=== PATIENT | female | born 1945 | race Caucasian/White ===

== ENCOUNTER 2020-07-25 06:51 | Outpatient (NON) | payer MEDICARE, SELFPAY ==
[2020-07-25 18:18] LABS: SARS-CoV-2 RNA PCR Positive
== END 2020-07-25 06:52 ==
PROVIDERS: PCP Family Medicine; Visit Provider Physician Assistant Medical
DX: U07.1 COVID-19 (principal)
CPT/HCPCS: 87635; C9803; U0003

== ENCOUNTER 2021-03-15 08:40 | Outpatient (CLI) | payer MEDICARE, SELFPAY ==
--- NOTE | ~2021-03-15 | MM_ITS ---
EXAMINATION: MM screening [facility] BI w jeramie HISTORY: Screening mammogram TECHNIQUE: Craniocaudal and mediolateral oblique 3-D tomosynthesis images were obtained and synthetic 2-D images were generated. CAD analysis was submitted and interpreted. COMPARISON: Prior mammograms dating back to 05/17/2014 BREAST PARENCHYMAL COMPOSITION: The breasts are almost entirely fatty. FINDINGS: There is no evidence of suspicious mass, calcification, or architectural distortion to sugg est malignancy in either breast. There has been no suspicious interval change. IMPRESSION: 1. No mammographic evidence of malignancy. 2. Recommend routine screening mammography in one year. BI-RADS Category 1: Negative Reviewed, dictated and finalized at location A.
== END 2021-03-15 08:41 | disposition home or self-care (01) ==
LOC: ANHIMG 08:45
PROVIDERS: PCP Family Medicine; Visit Provider Family Medicine
DX: Z12.31 Encounter for screening mammogram for malignant neoplasm of breast (principal)
CPT/HCPCS: 77063; 77067

== ENCOUNTER → 2021-04-29 10:55 | Outpatient (CLI) | payer MEDICARE, SELFPAY ==
--- NOTE | ~2021-04-29 | XR_ITS ---
EXAMINATION: XR knee RT 3V DATE: 04/29/2021 12:10 INDICATION: Right knee pain. TECHNIQUE: 3 views of right knee including standing views were obtained. COMPARISON: None. FINDINGS: Bone alignment is normal. No fracture. There is mild tricompartmental osteoarthritis charac terized by marginal osteophytes. No knee joint effusion. IMPRESSION: 1. Mild right knee osteoarthritis. Reviewed, dictated and finalized at location A.
== END ==
PROVIDERS: PCP Family Medicine; Visit Provider Family Medicine
DX: M25.561 Pain in right knee (principal); M17.11 Unilateral primary osteoarthritis, right knee
CPT/HCPCS: 73562

== ENCOUNTER → 2021-05-16 10:01 | Outpatient (CLI) | payer MEDICARE, SELFPAY ==
--- NOTE | ~2021-05-16 | MR_ITS ---
EXAMINATION: MR knee RT wo con DATE: 05/16/2021 11:18 INDICATION: Right knee swelling and pain radiating down the leg TECHNIQUE: Magnetic resonance imaging (MRI) of the right knee was performed without intravenous contr ast. Sequences included coronal PD-weighted FSE, coronal PD-weighted FS FSE, sagittal T2-weighted FS E, sagittal PD-weighted FS FSE and axial PD weighted fat saturated FSE. COMPARISON: None. FINDINGS: Medial compartment: Medial meniscus is normal. Articular cartilage is normal. Lateral compartment: Complex lateral meniscal tear with both radial and longitudinal horizontal components at the meniscal body. Partial-thickness chondral fissuring without degenerative subchondral changes at the lateral t ibial plateau and anterior to central weightbearing medial femoral condyle. There is small region of chondral ulceration involving greater than 50% the cartilage thickness with minimal underlying subart icular edema at the lateral side of the posterior weightbearing lateral femoral condyle. Patellofemoral compartment: Deep chondral ulceration with minimal underlying cortical irregularity and mild subarticular edema al sylvia the cephalad third of the lateral patellar facet and apical ridge as well as along the caudal asp ect of the lateral trochlea, trochlear groove and medial trochlea. Small central subchondral osteophy te at the inferolateral aspect of the medial trochlea. Ligaments and tendons: Anterior and posterior cruciate ligaments are normal. The medial collateral ligament is normal. The f ibular collateral ligament is normal. Mild tendinopathy with thickening and mild increased signal but without discrete tear of the proximal tendon of the medial head of the gastrocnemius. Mild distal qu adriceps tendinopathy. The patellar tendon is normal. The visualized medial and lateral hamstring ten dons as well as the iliotibial band are normal. Fluid: Moderate-sized knee joint effusion. No loose osteochondral bodies identified. Osseous/other: Alignment is normal. No fracture or pathologic marrow replacing process. IMPRESSION: 1. Complex tear at the body of the lateral meniscus. 2. Mild to moderate patellofemoral osteoarthritis with regions of high-grade patellar and trochlear c hondromalacia. 3. Mild osteoarthritis with moderate grade chondromalacia in the lateral compartment. 4. Mild tendinopathy without discrete tear at the distal quadriceps tendon as well as the proximal te ndon of the medial head of the gastrocnemius. 5. Moderate-sized right knee joint effusion. Reviewed, dictated and finalized at location A. IMPRESSION: 1. Complex tear at the body of the lateral meniscus. 2. Mild to moderate patellofemoral osteoarthritis with regions of high-grade pa tellar and trochlear chondromalacia. 3. Mild osteoarthritis with moderate grade chondromalacia in the lateral compar tment. 4. Mild tendinopathy without discrete tear at the distal quadriceps tendon as w ell as the proximal tendon of the medial head of the gastrocnemius. 5. Moderate-sized right knee joint effusion.
== END ==
PROVIDERS: PCP Family Medicine; Visit Provider Family Medicine
DX: M25.561 Pain in right knee (principal); S83.271A Complex tear of lateral meniscus, current injury, right knee, initial encounter; M17.11 Unilateral primary osteoarthritis, right knee; M22.41 Chondromalacia patellae, right knee; M76.891 Other specified enthesopathies of right lower limb, excluding foot; M25.461 Effusion, right knee
CPT/HCPCS: 73721

== ENCOUNTER → 2021-07-23 01:34 | Outpatient (CLI) | payer MEDICARE, SELFPAY ==
[2021-07-23 18:23] LABS: SARS-CoV-2 RNA PCR Negative
== END ==
PROVIDERS: PCP Family Medicine; Visit Provider Orthopaedic Surgery
DX: Z01.812 Encounter for preprocedural laboratory examination (principal); Z20.822 Contact with and (suspected) exposure to COVID-19
CPT/HCPCS: C9803; U0003; U0005

== ENCOUNTER 2021-07-23 08:38 | Outpatient (CLI) | payer MEDICARE, SELFPAY ==
--- NOTE | 2021-07-23 08:48 | ECG_ITS ---
Measurements Intervals [place] Rate: 61 P: 31 ID: [id number] QRS: -12 QRSD: 98 T: -2 QT: 426 QTc: 429 Interpretive Statements SINUS RHYTHM VENTRICULAR PREMATURE COMPLEX VOLTAGE CRITERIA FOR LVH BORDERLINE ST-T WAVE ABNORMALITY- ANTEROLAT/INF LEADS BASELINE ARTIFACT- I, II, III, AVR, AVL, AVF BORDERLINE ECG Electronically Signed On 07-23-2021 15:32:40 CDT by Nawaf Diaz D.O.
[2021-07-23 09:38] LABS: Anion Gap 7 mmol/L (8-16); Blood Urea Nitrogen 16 mg/dL (7-17); Calcium 9.4 mg/dL (8.4-10.2); Carbon Dioxide 30 mmol/L (22-30); Chloride 102 mmol/L (98-107); Estimated Glomerular Filt Rate > 60; Glucose 129 mg/dL (65-110); Potassium 4.1 mmol/L (3.4-5.0); Sodium 139 mmol/L (137-145)
== END 2021-07-23 08:39 | disposition home or self-care (01) ==
LOC: ANHSURGERY 08:43
PROVIDERS: Anesthesiology; PCP Family Medicine; Visit Provider Orthopaedic Surgery
DX: Z01.818 Encounter for other preprocedural examination (principal); I10 Essential (primary) hypertension; Z51.81 Encounter for therapeutic drug level monitoring; Z79.899 Other long term (current) drug therapy
CPT/HCPCS: 36415; 80048; 93005

== ENCOUNTER 2021-07-26 01:55 | Day surgery (SDC) | payer MEDICARE, SELFPAY ==
[2021-07-22 11:41] VITALS: BMI 38.8
[2021-07-26] VITALS (10 sets, daily range): BP systolic 97–151; BP diastolic 54–99; PULSE 55–78; RESP 12–20; TEMP 36.4–36.5; O2SAT 95–99
--- NOTE | 2021-07-26 07:16 | WPDHPUPDATE1 ---
History and Physical Update Update Date/Time: 07/26/21 07:16 History and Physical has been reviewed, including an updated exam of the patient. There are NO changes in the patient's condition. Risks, benefits, and alternatives have been discussed and questions answered. Patient agrees to proceed with procedure.
--- NOTE | 2021-07-26 11:50 | WPDANESEPPF ---
Anes - Initial Pre Proc Eval Procedure: Operation Date: 07/26/21 14:00 Proposed Procedures p Right Knee Arthroscopic Partial Lateral Meniscectomy - Uriel Davis MD Date/Time: 07/26/21 11:50 Surgeon: Uriel Davis MD Pre Op Diagnosis: right lateral meniscus tear Patient Data Age: 76 Gender: F Height: 1.7 m Weight: 112.49 kg Allergies Allergy/AdvReac Type Severity Reaction Status Date / Time doxycycline Allergy Intermediate Nausea Verified 07/26/21 11:50 hydrochlorothiazide Allergy Intermediate itching Verified 07/26/21 11:50 [Zestoretic] kiwi Allergy Intermediate Itching Verified 07/26/21 11:50 lisinopril Allergy Intermediate itching Verified 07/26/21 11:50 olmesartan Allergy Intermediate leg Verified 07/26/21 11:50 swelling, bloating? Antifungal - Imidazole Allergy Mild Skin Verified 07/26/21 11:50 Reaction cyanocobalamin (vitamin B12) Allergy Mild Skin Verified 07/26/21 11:50 Reaction docosahexaenoic acid [MaxEPA] Allergy Mild Skin Verified 07/26/21 11:50 Reaction eicosapentaenoic acid Allergy Mild Skin Verified 07/26/21 11:50 [MaxEPA] Reaction fish oil Allergy Mild Skin Verified 07/26/21 11:50 Reaction meloxicam Allergy Mild severe Verified 07/26/21 11:50 dyspepsia omega-3 acid ethyl esters Allergy Mild Itching Verified 07/26/21 11:50 omeprazole Allergy Mild Itching Verified 07/26/21 11:50 terbinafine Allergy Mild Itching Verified 07/26/21 11:50 duloxetine Allergy Unknown Unknown Verified 07/22/21 11:37 metronidazole Allergy Unknown Unknown Verified 07/22/21 11:37 omega-3 fatty acids [MaxEPA] Allergy Unknown Itching Verified 07/26/21 11:50 clarithromycin AdvReac Mild Nausea and Verified 07/26/21 11:50 Vomiting piroxicam AdvReac Mild Nausea and Verified 07/26/21 11:50 Vomiting Home Medications Medication Instructions Recorded Confirmed Type cholecalciferol (vitamin D3) 25 1,000 unit PO DAILY 08/05/19 07/22/21 History mcg (1,000 unit) capsule fluticasone propionate 50 1 spray NASAL DAILY PRN 08/05/19 07/22/21 History mcg/actuation nasal spray,suspension esomeprazole magnesium 40 mg 40 mg PO DAILY #90 cap 11/09/20 07/22/21 Rx capsule,delayed release celecoxib 200 mg capsule 400 mg PO DAILY #180 cap 11/30/20 07/22/21 Rx duloxetine 60 mg capsule,delayed 120 mg PO DAILY #180 cap 11/30/20 07/22/21 Rx release triamcinolone acetonide 0.1 % 1 applic TOPICAL QID #453.6 gm 03/07/21 07/22/21 Rx topical cream diclofenac epolamine 1.3 % 1 patch TOPICAL Q12H #30 ea 04/25/21 07/22/21 Rx transdermal 12 hour patch diclofenac sodium 1 % topical gel 4 g TOPICAL QID #100 g 04/25/21 07/22/21 Rx hydralazine 25 mg tablet 25 mg PO TID #270 tablet 06/05/21 07/22/21 Rx hydrochlorothiazide 12.5 mg tablet 12.5 mg PO DAILY #90 tablet 07/01/21 07/22/21 Rx alprazolam 0.5 mg PO Q4H PRN 07/22/21 07/22/21 History clonazepam 0.5 mg PO HS 07/22/21 07/22/21 History fluticasone propion-salmeterol 1 inh INHALATION BID PRN 07/22/21 07/22/21 History [Advair Diskus] levothyroxine [Synthroid] 125 mcg PO DAILY 07/22/21 07/22/21 History nebivolol [Bystolic] 10 mg PO HS 07/22/21 07/22/21 History Patient hx anesthesia problems: none Family hx anesthesia problems: none Results Review: All pre-operative results and documents have been reviewed as part of the pre-operative evaluation. [facility] Past Medical History Medical History (Updated 07/25/21 @ 14:27 by Angel Alexander DO) Anxiety Asthma Bunion Depression Diverticulosis of small intestine (~2008) Fatty liver Gastroesophageal reflux disease Hyperhidrosis Hypertension Ischemic brain injury (~2008) Obesity (BMI 30-39.9) Pneumonia (~2018) Prurigo nodularis Sleep apnea, unspecified Squamous cell skin cancer Staphylococcal septicemia (~2013) Surgical History Surgical History H/O hernia repair H/O: hysterectomy (~1993) History of bilate
[2021-07-26] MEDS: ACETAMINOPHEN 500 MG TABLET 1000 MG PO (11:59)
[2021-07-26] MEDS: LACTATED RINGERS 1,000 ML 30 ML IV CONT ×2 (12:15→14:03)
[2021-07-26] MEDS: KETOROLAC 15 MG/ML VIAL (*BKC) IV PUSH (12:16)
[2021-07-26] MEDS: ceFAZolin 2 GM/D5W 50 ML 2 GM/50 ML BAG IVPB (12:34)
[2021-07-26] MEDS: BUPIVACAINE HCL 0.5% PF 30 ML VIAL INFILTRATE (13:04)
[2021-07-26] MEDS: fentaNYL CITRATE INJ (*CRX) 100 MCG/2 ML VIAL 25 MCG IV PUSH ×2 (14:25→14:34)
[2021-07-26] MEDS: oxyCODONE HCL (*CRX) 5 MG TAB IR PO (15:15)
--- NOTE | 2021-07-26 16:31 | P.OP_ITS ---
Procedure Note - Detailed Date of Procedure 07/26/21 Pre-op Diagnosis Right lateral meniscus tear Post-op Diagnosis same Procedure Performed Arthroscopic partial lateral meniscectomy, right knee. Surgeon Uriel Davis MD [facility] Adolescent Psychiatrist Sharon Francis PA-C Anesthesia general Findings Extensive lateral meniscus tear with large, unstable, extruded fragment. Severe proliferative synovitis. Medial femur chondromalacia grade 0, medial tibia grade 0 . Lateral femur chondromalacia grade 2/3, lateral tibia grade 1. Patellar grade 1, trochlea grade 1. Description of Procedure The patient was identified and the surgical site confirmed and signed in the preoperative holding area. Antibiotics were started per protocol. She was brought to the operative room and transferred to the OR table. A general anesthetic was administered. Supine position with the operative lower extremity position in the leg nelson after placement of a well padded tourniquet. The leg support was lowered and the contralateral limb was supported with a soft bolster . The knee was prepped and draped in the usual sterile fashion. A time-out was performed. The portal sites were marked and infiltrated with 0.5% Marcaine 20 mL. The limb was exsanguinated and the tourniquet inflated to 300 mL Hg. Standard inferolateral and inferomedial portals were established. Inflow was obtained with the saline pump. The camera was introduced. Diagnostic inspection of the joint was accomplished. The meniscus was debrided with the arthroscopic shaver and punches until stable. Gentle chondroplasty of the lateral femoral condyle. The arthroscopic instruments were removed. The tourniquet released and wounds closed with subcutaneous 4-0 Monocryl absorbable suture. Steri strips and a sterile dressing were applied. A light elastic wrap was placed. The patient was extubated and brought to the recovery room in stable condition. Estimated Blood Loss -5.0 Drains No Complications No immediate complications Condition stable Disposition PACU
== END 2021-07-26 16:00 | disposition home or self-care (01) ==
PROVIDERS: PCP Family Medicine; Visit Provider Orthopaedic Surgery
PROC: (CPT 29870; principal; 2021-07-26 14:00)
DX: S83.271A Complex tear of lateral meniscus, current injury, right knee, initial encounter (principal); M65.9 Synovitis and tenosynovitis, unspecified; M22.41 Chondromalacia patellae, right knee; I10 Essential (primary) hypertension; K21.9 Gastro-esophageal reflux disease without esophagitis; J45.909 Unspecified asthma, uncomplicated; G47.33 Obstructive sleep apnea (adult) (pediatric); E66.9 Obesity, unspecified; Z68.39 Body mass index [BMI] 39.0-39.9, adult; Z85.828 Personal history of other malignant neoplasm of skin; X58.XXXA Exposure to other specified factors, initial encounter; Y93.9 Activity, unspecified; Y92.9 Unspecified place or not applicable; Y99.9 Unspecified external cause status
CPT/HCPCS: 29881; 36415; 80048; 93005; A9270; C9803; J0690; J1885; J3010; J7120; U0003; U0005

== ENCOUNTER 2022-10-24 09:03 | Outpatient (CLI) | payer MEDICARE, SELFPAY ==
--- NOTE | ~2022-10-24 | CT_ITS ---
EXAMINATION: CT LE RT wo con DATE: 10/24/2022 09:42 INDICATION: Right knee osteoarthritis an pain for preoperative planning TECHNIQUE: High resolution computed tomography (CT) of the right lower extremity from the hip through the ankle was performed without intravenous contrast. Additional sagittal and coronal reconstruction s were performed. Automated exposure control and iterative reconstruction technique were employed. Th e dose-length product was 1984.14 mGy-cm. COMPARISON: Right knee radiographs dated 09/08/2022 and MRI dated 05/16/2021 FINDINGS: Bone alignment is normal. No fracture. Polyarticular osteoarthritis, moderate severity at the right k nee with patellofemoral and lateral compartment predominance where there are mild subarticular change s suggesting overlying high-grade chondromalacia. Additional moderate osteoarthritis at the first met atarsophalangeal joint and mild osteoarthritis at the right hip and a few additional joints throughou t the right foot. Small Achilles and plantar calcaneal spurs. Moderate-sized right knee joint effusio n. 4 x 1.8 x 1.7 cm lenticular intramuscular lipoma in the proximal right vastus intermedius muscle. Soft tissues are otherwise unremarkable. No pathologically enlarged lymphadenopathy in the excised pe lvis right inguinal region. Multiple diverticula along the visualized sigmoid colon without adjacent inflammatory stranding to suggest diverticulitis. The uterus is not identified and has likely been soto rgically resected. IMPRESSION: 1. Moderate lateral and patellofemoral compartment predominant compartment osteoarthritis at the righ t knee with moderate-sized knee joint effusion. Reviewed, dictated and finalized at location B. NT SERVICES COORDINATOR IMPRESSION: 1. Moderate lateral and patellofemoral compartment predominant compartment oste oarthritis at the right knee with moderate-sized knee joint effusion.
[2022-10-24 10:29] LABS: Hematocrit 44.9 % (37.0-47.0); Hemoglobin 14.3 g/dL (12.0-15.0)
[2022-10-24 10:38] LABS: Albumin Level 4.1 g/dL (3.5-5.1); Estimated Glomerular Filt Rate > 60; Glucose 114 mg/dL (65-110)
[2022-10-24 10:42] LABS: Hemoglobin A1C 5.8 % (<5.7)
== END 2022-10-24 09:04 | disposition home or self-care (01) ==
PROVIDERS: PCP Family Medicine; Visit Provider Orthopaedic Surgery
DX: M17.11 Unilateral primary osteoarthritis, right knee (principal); R73.03 Prediabetes; Z01.818 Encounter for other preprocedural examination; M25.461 Effusion, right knee
CPT/HCPCS: 36415; 73700; 82040; 82565; 82947; 83036; 85014; 85018

== ENCOUNTER 2022-10-29 09:43 | Outpatient (CLI) | payer MEDICARE, SELFPAY ==
--- NOTE | 2022-10-29 11:44 | ECG_ITS ---
Measurements Intervals [place] Rate: 63 P: 38 AK: 195 QRS: -8 QRSD: 82 T: -2 QT: 427 QTc: 437 Interpretive Statements SINUS RHYTHM WITH OCCASIONAL VENTRICULAR PREMATURE COMPLEXES MINIMAL VOLTAGE CRITERIA FOR LVH, CONSIDER NORMAL VARIANT [MEETS CRITERIA IN ONE OF: R(aVL), S(V1), R(V5), R(V5/V6)+S(V1)] NONSPECIFIC ST & T-WAVE ABNORMALITY COMPARED TO ECG 07/23/2021 09:00:43 NO SIGNIFICANT CHANGES Electronically Signed On 10-29-2022 14:58:52 ORDER CALLER by Joan Zimmer M.D.
== END 2022-10-29 09:44 | disposition home or self-care (01) ==
LOC: ANHCARD 09:47
PROVIDERS: PCP Family Medicine; Visit Provider Orthopaedic Surgery
DX: I10 Essential (primary) hypertension (principal); M17.11 Unilateral primary osteoarthritis, right knee; I25.118 Atherosclerotic heart disease of native coronary artery with other forms of angina pectoris; R94.31 Abnormal electrocardiogram [ECG] [EKG]
CPT/HCPCS: 93005

== ENCOUNTER 2023-07-28 09:44 | Outpatient (CLI) | payer MEDICARE, SELFPAY ==
--- NOTE | ~2023-07-28 | MM_ITS ---
EXAMINATION: MM screening [facility] BI w jeramie HISTORY: Screening mammogram TECHNIQUE: Craniocaudal and mediolateral oblique 3-D tomosynthesis images were obtained and synthetic 2-D images were generated. CAD analysis was submitted and interpreted. COMPARISON: 03/15/2021, 10/10/2019, 07/19/2018 BREAST PARENCHYMAL COMPOSITION: There are scattered areas of fibroglandular density. FINDINGS: No suspicious mass, calcification, or architectural distortion are identified in either brigida ast to suggest malignancy. There has been no suspicious interval change. IMPRESSION: 1. No mammographic evidence of malignancy. 2. Recommend routine screening mammography in one year. BI-RADS Category 1: Negative Reviewed, dictated and finalized at location A.
== END 2023-07-28 09:45 | disposition home or self-care (01) ==
LOC: ANHIMG 09:46
PROVIDERS: PCP Family Medicine; Visit Provider Physician Assistant
DX: Z12.31 Encounter for screening mammogram for malignant neoplasm of breast (principal)
CPT/HCPCS: 77063; 77067

== ENCOUNTER 2024-07-11 14:27 | Outpatient (CLI) | payer MEDICARE, SELFPAY ==
--- NOTE | ~2024-07-11 | US_ITS ---
EXAMINATION: US venous doppler [facility] DATE: 07/11/2024 15:15 INDICATION: Other specified soft tissue disorders. Left lower limb pain and swelling. TECHNIQUE: Grayscale ultrasound images without and with compression and Doppler ultrasound images of the left lower extremity veins were obtained. COMPARISON: None. FINDINGS: The visualized portions of left common femoral vein, profunda (deep) femoral vein, and greater saphen ous vein outflow are patent. There is thrombus in the left femoral, popliteal, posterior tibial, and peroneal veins. IMPRESSION: 1. Deep vein thrombosis involving the left femoral, popliteal, posterior tibial, and peroneal veins. Reviewed, dictated and finalized at location A. IMPRESSION: 1. Deep vein thrombosis involving the left femoral, popliteal, posterior tibia l, and peroneal veins.
== END 2024-07-11 14:28 | disposition home or self-care (01) ==
PROVIDERS: PCP Family Medicine; Visit Provider Student in an Organized Health Care Education/Training Program
DX: I82.412 Acute embolism and thrombosis of left femoral vein (principal); I82.432 Acute embolism and thrombosis of left popliteal vein; I82.442 Acute embolism and thrombosis of left tibial vein; I82.452 Acute embolism and thrombosis of left peroneal vein; M79.89 Other specified soft tissue disorders
CPT/HCPCS: 93971

== ENCOUNTER 2024-12-07 10:37 | Outpatient (CLI) | payer MEDICARE, SELFPAY ==
--- OUTSIDE RECORDS SUMMARY | 2024-12-07 12:05 | XMS_ITS | Continuity of Care Document ---
Author Organization [facility] Address [id number] [place] [address] [address] [place] [address] Phone Care Team Providers Care Broadloom Weaver Name Role Phone [facility] Unavailable Unavail able Landy Alonzo Unavailable Unavailable Procedures Procedure Date Vision S[employer] Fr[employer] Purchases [facility] [employer] [employer] Purchases BF Polycarb Sphcyl [place] To +/-4d .12-2d Anti-reflective Coating Polycarb Lens Per Lens No Charge Glasses Check Eye Exam Established Pt Ophthalmoscopy, Subsequent Eye Exam Established Pt Ophthalmoscopy, Subsequent Eye Exam Established Pt Ophthalmoscopy, Subsequent Eye Exam & Treatment Ophthalmoscopy, Subsequent Optic Nerve Topography Eye Exam & Treatment Refraction Office/outpatient Visit, Est Office/outpatient Visit, Est Office/outpatient Visit, Est Office/outpatient Visit, Est Office/outpatient Visit, Est Office/outpatient Visit, New Office/outpatient Visit, New Advance Directives Directive Yes / No Effective Date File Name No Information Encounters Encounter Description Practice Location Reason(s) For Visit Diagnoses Date Provider Providers Copied on Encounter [facility], [address], [place], [place], [id number], tel:[phone] [facility] No Information 5-201 0 [facility]. [address] [facility], [address], [place], [place], [id number], [place]. tel:[phone] Referring Provider: Max Burrell OD Nida, [address], [place], [address]. tel:[phone] g Provider: Landy Alonzo, [address] [place], [address]. tel:[phone] [facility], [address], [place], [place], [id number], [place] tel:[phone] [facility] No Information 1-201 0 Burrell OD Max. [address], [place], [address], [place]. tel:[phone] [facility], [address] [place] [address] [address], [place], [place], [id number], [place] tel:[phone] [facility] No Information 8-201 0 Satish Martinez. [address] [place], [address], [place]. tel:[phone] Referring Provider: Juan Bay, [address] [place], [address]. tel:[phone] [facility], [address], [place], [place], [id number], [place] tel:[phone] [facility] No Information 1-201 0 Satish Martinez. [address] [place], [address], [place]. tel:[phone] Referring Provider: Juan Bay, [address] [place], [address]. tel:[phone] [facility], [address], [place], [place], [id number], [place] tel:[phone] [place], [place] [address] No Information Sep-3 0-201 0 Satish Martinez. [address] [place], [address], [place]. tel:[phone] Referring Provider: Juan Bay, [address] [place], [address]. tel:[phone] [facility], [address] [place] [address] [address], [place], [place], [id number], [place] tel:[phone] [place], [place] [address] No Information 2 3-201 0 Satish Martinez. [address] [place], [place], [facility], [place]. tel:[phone] Referring Provider: Juan Bay, [address] [place], [facility]. tel:[phone] [facility], [address] [place] [address] [address], [place], [place], [id number], [place] tel:[phone] [place] [address] No Information 0 7-201 0 C[place]ton Meaghan. [facility], [place], [place], [facility], [place]. tel:[phone] Office/outpa tient Visit, [facility], [id number] [place] [address] [address], [place], [place], [id number], [place] tel:[phone] [place] [address] No Information 7-201 0 Krishnasamy Lázaro. [facility], [place], [facility], [place]. tel:[phone] Office/outpa tient Visit, [facility], [address] [place] [address] [address], [place], [place], [id number], [place] tel:[phone] [place], [place] [address]ate [place] No Information 2 5-200 9 Krishnasamy Lázaro. [address], [place], [place], [facility], [place]. tel:[phone] Office/outpa tient Visit, [facility], [address], [place], [place], [address], [place] tel:[phone] [facility] No Information Nov-0 4-200 9 Krishnasamy Lázaro. [address], [place], [address], [place]. tel:[phone] Office/outpa tient Visit, [facility], [address] [place] [address] [address], [place], [place], [address], [place] tel:[phone] [facility] No Information Oct-2 7-200 9 Krishnasamy Lázaro. [address] [facility] [address], [place], [place], [facility], [place]. tel:[phone] Office/outpa tient Visit, [facility], [address] [place] [address] [address], [place], [place], [id number], [place] tel:[phone] [facility] No Information Oct-2 1-200 9 Krishnasamy Lázaro. [address] [facility] [address], [place], [address], [place]. tel:[phone] Office/outpa tient Visit, [facility], [address] [place] [address] [address], [place], [place], [id number], [place] tel:[phone] [facility] No Information Oct-1 4-200 9 Krishnasamy Lázaro. [address], [place], [address], [place]. tel:[phone] Office/outpa tient Visit, [facility], [address], [place], [place], [id number], [place] tel:[phone] [facility] No Information Mar-0 5-200 9 Krishnasamy Lázaro. [address], [place], [address], . tel:[phone] Referring Provider: Pierce Cobb MD, [address] [place] [address], [address]. tel:[phone] Family History Family Member Type Diagnosis Age At Onset No Information Payers Payer name Insurance type Covered alliance party ID Authoriza tisrikanth(s) [employer] Plan CI [id number] Social History Type Description Quantity Date Captured Comments Sex Female Smoking Status No Information Chief Complaint And Reason For Visit No Information Reason For Referral Reason For Referral No Information History Of Present Illness Encounter Date Complaint History Of Prese nt Illness No Information Functional Status Date Functional Assessmen t No Information Instructions Date Instruction Additional Infor mation No Information Assessments Type Assessment Date No Information Patient Care Teams Name Effective Dates (start - stop) Status Members No Information
--- OUTSIDE RECORDS SUMMARY | 2024-12-07 12:05 | XMS_ITS | Clinical Summary ---
Author Organization [facility] Address [address] [place] [address] Care Team Providers Care Cementer Name Role Phone Pierce Cobb MD Primary Care Provider +1- [phone] Allergies No known active allergies Social History Tobacco Use Types Packs/Day Years Used Date Smoking Tobacco: Never Assessed Comments Unknown Sex and Gender Information Value Date Recorded Sex Assigned at Not on file Legal Sex Female 5:43 PM CDT Gender Identity Not on file Sexual Orientation Not on file Last Filed Vital Signs Vital Sign Reading Time Taken Comments Blood Pressure 176/73 05/13/2021 7:31 PM CDT Pulse 67 05/13/2021 5:51 PM CDT Temperature 36.5 C (97.7 F) 05/13/2021 5:51 PM CDT Respiratory Rate 18 05/13/2021 5:51 PM CDT Oxygen Saturation 95% 05/13/2021 7:32 PM CDT Inhaled Oxygen Concentration - - Weight 113.4 kg (250 lb) 05/13/2021 5:51 PM CDT Height 162.6 cm (5' 4 ) 05/13/2021 5:51 PM CDT Body Mass Index 42.91 05/13/2021 5:51 PM CDT Plan of Treatment Health Maintenance Due Date Last Done Comments Hepatitis C 1965 DTaP, Tdap and Td Vaccines ( 1 - Tdap) 1966 Annual Medicare Wellness Visit 2012 Dexa Scan (General) 2012 Pneumococcal Vaccine: 65+ Ye ars (1 of 1 - PCV) 2012 Zoster Vaccines (2 of 3) 04/30/2017 03/05/2017 RSV Immunization or 60+ Years (1 - 1-dose 75+ series) 2022 COVID-19 Vaccine (2023-2 5 season) 2024 Influenza Adult (#1) 2024 07/06/2019 Meningococcal B Vaccine Aged Out No l onger eligible based on patient's age to complete this topic Meningococcal Vaccine Aged Out No kenisha edi eligible based on patient's age to complete this topic RSV Immunizations Under 20 Months Aged Out No longer eligible based on patient's age to complete this topic Insurance [employer] Care Teams Cementer Relationship Specialty Start Date End Date Pierce Cobb MD PCP - General FAMILY PRACTICE 05/13/21
--- OUTSIDE RECORDS SUMMARY | 2024-12-07 12:05 | XMS_ITS | Clinical Summary ---
Author Organization [facility] [address] Address [address] [place] [address] Care Team Providers Care Dredge Deckhand Name Role Phone Pierce Cobb MD Primary Care Provider [phone] [phone] Allergies Active Allergy Reactions Criticality Noted Date Comments Piroxicam Other (See comments),Edema,Swelling Reaction: legs itching, edema, , Reaction: Swelling, Medications clonazePAM (KlonoPIN) 0.5 mg tablet take 1 tablet by oral route every day 0 0 6 Active hydrALAZINE (APRESOLINE) 25 mg tablet take 1 tablet by ORAL route 3 times every day with food 0 0 6 Active celecoxib (CeleBREX) 200 mg capsule take 1 capsule by oral route every day as needed 0 0 6 Active nitroglycerin (NITROLINGUAL) 400 mcg/spray spray place 1 spray by translingual route once onto or under the tongue for chest pain; max 3 sprays in 15 minutes 1 spray 3 6 Active hydroCHLOROthia zide (HYDRODIURIL) 12.5 mg tablet take 1 tablet by oral route every day 0 [address] (CYMBALTA) 60 mg capsule take 1 capsule by oral route every day 0 0 6 Active fluticasone-sánchez meterol (ADVAIR HFA) 115-21 mcg/actuation inhaler inhale 2 puff by inhalation route 2 times every day in the morning and evening 0 Inhaler 0 6 Active aspirin (ASPIRIN LOW DOSE) 81 mg tablet take 1 tablet by oral route every day 0 0 6 Active levothyroxine (SYNTHROID, LEVOTHROID) 125 mcg tablet take 2 tablet by oral route every day 0 0 6 Active nebivolol (BYSTOLIC) 10 mg tablet take 1 Tablet by oral route every day 0 0 6 Active Active Problems Problem Noted Date Diagnosed Date Hiatal hernia 10/21/2016 Overview (01/02/2017): Hiatal hernia Fatigue 10/21/2016 Overview (01/02/2017): Fatigue, unspecified type Caregiver role strain 10/21/2016 Overview (01/02/2017): Caregiver stress Asthma finding 10/21/2016 Overview (01/02/2017): Asthma finding Patient encounter status 10/21/2016 Overview (01/02/2017): Dietary counseling Counseling procedure with explicit context 10/21 Overview (01/02/2017): Exercise counseling Benign hypertension 07/25/2016 Overview (01/02/2017): HTN (hypertension), benign Obstructive sleep apnea syndrome 07/25/2016 Overview (01/02/2017): CADE on CPAP Acquired hypothyroidism 07/25/2016 Overview (01/02/2017): Hypothyroidism (acquired) Obesity with body mass index 30 or greater 07/25 Overview (01/02/2017): Obesity (BMI 35.0-39.9 without comorbidity) Dyskinesia of esophagus 07/25/2016 Overview (01/02/2017): Esophageal spasm Gastroesophageal reflux disease 07/25/2016 Overview (01/02/2017): Gastroesophageal reflux disease, esophagitis presence not specified Bradycardia 07/25/2016 Overview (01/02/2017): Bradycardia Never smoked tobacco 08/29/2011 Family History Medical History Relation Name Comments Other Father Blood clots, elisabeth ng; Heart disease Mother Cardiovascular disease; Relation Name Status Comments Father Mother Social History Tobacco Use Types Packs/Day Years Used Date Smoking Tobacco: Never Alcohol Use Standard Drinks/Week Comments No 0 (1 standard drink = 0.6 oz pur e alcohol) Personal Safety Answer Date Recorded Getting School Help Needed Not on file 12/11 Comments Unknown Sex and Gender Information Value Date Recorded Sex Assigned at Not on file Legal Sex Female 6:36 AM UNDERWRITING CLERK Gender Identity Not on file Sexual Orientation Not on file Obstetrics History Last Filed Vital Signs Vital Sign Reading Time Taken Comments Blood Pressure 140/90 10/21/2016 9:00 AM UNDERWRITING CLERK Pulse 60 10/21/2016 9:00 AM UNDERWRITING CLERK Temperature - - Respiratory Rate - - Oxygen Saturation - - Inhaled Oxygen Concentration - - Weight 115.7 kg (255 lb) 10/21/2016 9:00 AM UNDERWRITING CLERK Height 170.2 cm (5' 7 ) 10/21/2016 9:00 AM UNDERWRITING CLERK Body Mass Index 39.94 10/21/2016 9:00 AM UNDERWRITING CLERK Plan of Treatment Not on file Insurance [facility] Care Teams Dredge Deckhand Relationship Specialty Start Date End Date Pierce Cobb MD PCP - General 10/21/16
--- OUTSIDE RECORDS SUMMARY | 2024-12-07 12:05 | XMS_ITS | Referral Summary ---
Author Organization [facility] [address] Address [address] [place] [address] Care Team Providers Care Continuum Of Care Manager Name Role Phone Pierce Cobb MD Primary Care Provider +1 -[phone] Allergies Active Allergy Reactions Criticality Noted Date [...] Overview (01/02/2017): Bradycardia Never smoked tobacco 08/29/2011 Social History Tobacco Use Types Packs/Day Years Used Date Smoking Tobacco: Never Alcohol Use Standard Drinks/Week Comments No 0 (1 standard drink = 0.6 oz pur e alcohol) Personal Safety Answer Date Recorded Getting School Help Needed Not on file 12/11 Comments Unknown Sex and Gender Information Value Date Recorded Sex Assigned at Not on file Legal Sex Female 6:36 AM RICKSHAW DRIVER Gender Identity Not on file Sexual Orientation Not on file Last Filed Vital Signs Vital Sign Reading Time Taken Comments Blood Pressure 140/90 10/21/2016 9:00 AM RICKSHAW DRIVER Pulse 60 10/21/2016 9:00 AM RICKSHAW DRIVER Temperature - - Respiratory Rate - - Oxygen Saturation - - Inhaled Oxygen Concentration - - Weight 115.7 kg (255 lb) 10/21/2016 9:00 AM RICKSHAW DRIVER Height 170.2 cm (5' 7 ) 10/21/2016 9:00 AM RICKSHAW DRIVER Body Mass Index 39.94 10/21/2016 9:00 AM RICKSHAW DRIVER Plan of Treatment Not on file Insurance [facility] Care Teams Continuum Of Care Manager Relationship Specialty Start Date End Date Pierce Cobb MD PCP - General 10/21/16
[2024-12-07 13:23] LABS: Basophils Percent Auto 0.3 % (0.2-1.2); Eosinophils Absolute Auto 0.2 K/mm3 (0-0.3); Eosinophils Percent Auto 2.8 % (0-4.4); Hematocrit 48.6 % (37.0-47.0); Hemoglobin 15.8 g/dL (12.0-15.0); Immature Granulocyte Absolute 0.05 K/mm3 (0.00-0.031); Immature Granulocyte Percent A 0.6 % (0-0.5); Lymphocytes Absolute Auto 2.02 K/mm3 (0.9-3.2); Lymphocytes Percent Auto 23.2 % (18.3-44.2); Mean Corpuscular HGB Conc 32.5 g/dl (32-36); Mean Corpuscular Hemoglobin 33.3 pg (26-34); Mean Corpuscular Volume 102.5 fl (80-100); Mean Platelet Volume 9.5 fl (7.4-10.4); Monocytes Percent Auto 11.3 % (2.6-8.5); Neutrophils Absolute Auto 5.4 K/mm3 (1.3-6.7); Neutrophils Percent Auto 61.8 % (45.5-73.1); Platelet Count Result 201 k/mm3 (150-375); Red Blood Count 4.74 M/mm3 (4.2-5.4); Red Cell Distribution Width 12.4 % (11.5-14.5); White Blood Count 8.7 K/mm3 (4.5-10.0)
[2024-12-07 15:29] LABS: Iron 133 ug/dL (37-170)
[2024-12-07 15:39] LABS: Percent Iron Saturation 42 % (20-50)
== END 2024-12-07 10:38 | disposition home or self-care (01) ==
PROVIDERS: PCP Family Medicine; Visit Provider Family Medicine
DX: D75.1 Secondary polycythemia (principal); E83.19 Other disorders of iron metabolism; I82.409 Acute embolism and thrombosis of unspecified deep veins of unspecified lower extremity
CPT/HCPCS: 36415; 83540; 83550; 85025

== ENCOUNTER 2025-03-28 14:06 | Outpatient (CLI) | payer MEDICARE, SELFPAY ==
--- OUTSIDE RECORDS SUMMARY | 2025-03-28 14:09 | XMS_ITS | Clinical Summary ---
Author Organization [facility] Trevor cleary Emeka Address [address] [place] [address] Care Team Providers Care Digital Computer Systems Analyst Name Role Phone Unavailable Primary Care Provider Unavailabl e Allergies Active Allergy Reactions Criticality Noted Date Comments Piroxicam Unknown,Other (See Comments),Swelling Low 03/28/2025 Reaction: legs itching, edema, , Reaction: Swelling, Medications hydroCHLOROthia zide 12.5 mg tablet Take 1 Tablet by mouth daily. 5 Active clonazePAM (KlonoPIN) 0.5 mg Tablet take 1 tablet by mouth every day at bedtime 5 Active nebivoloL (BYSTOLIC) 10 mg Tablet 5 Active DULoxetine (CYMBALTA) 60 mg Capsule, Delayed Release(E.C.) Take 2 Capsules by mouth daily. 5 Active levothyroxine 137 mcg tablet Take 1 Tablet by mouth daily. Active hydrALAZINE (APRESOLINE) 25 mg tablet Take 25 mg by mouth 3 times daily. Active PROGESTERONE MICRONIZED ORAL Take 220 mg by mouth. Active liothyronine sodium (LIOTHYRONINE ORAL) Take 40 mg by mouth. Active estradioL (ESTRACE) 0.01% (0.1 mg/g) vaginal cream Insert vaginally daily. Active Active Problems No known active problems Encounters Date Type Department Care Team Description 03/28/2025 1:30 PM CDT Office Visit [facility] Oncology and Hematology - [place] [address] [place] [address] Jaspreet Vega MD Erythrocytosis (Primary Dx); Iron overload from Last 3 Months Family History Medical History Relation Name Comments No Known Problems Brother No Known Problems Child 1 No Known Problems Child 2 No Known Problems Child 3 Diabetes Father Prostate Cancer Father Diabetes Mother Heart Disease Mother No Known Problems Sister Relation Name Status Comments Brother Child 1 Alive Child 2 Alive Child 3 Alive Father Mother Sister Alive Social History Tobacco Use Types Packs/Day Years Used Date Smoking Tobacco: Never Smokeless Tobacco: Never Tobacco Cessation:Counseling Given: Not Answered Alcohol Use Standard Drinks/Week Comments Yes 0 (1 standard drink = 0.6 oz pur e alcohol) occasional Comments Unknown Sex and Gender Information Value Date Recorded Sex Assigned at Not on file Legal Sex Female 10:34 PM CDT Gender Identity Not on file Sexual Orientation Not on file Last Filed Vital Signs Vital Sign Reading Time Taken Comments Blood Pressure 107/69 03/28/2025 1:27 PM CDT Pulse 66 03/28/2025 1:27 PM CDT Temperature 36.9 C (98.5 F) 03/28/2025 1:27 PM CDT Respiratory Rate 15 03/28/2025 1:27 PM CDT Oxygen Saturation 95% 03/28/2025 1:27 PM CDT Inhaled Oxygen Concentration - - Weight 96.2 kg (212 lb) 03/28/2025 1:27 PM CDT Height 170.2 cm (5' 7) 03/28/2025 1:27 PM CDT Body Mass Index 33.2 03/28/2025 1:27 PM CDT Plan of Treatment Upcoming Encounters Date Type Department Care Team (Late st Contact Info) Description 04/11/2025 4:30 PM CDT Telephone Check Up [facility] Oncology and Hematology - [place] [address] [facility] [address] [place] [address] Jaspreet Vega MD [address] [facility] [address] [place] [address] Health Maintenance Due Date Last Done Comments DTAP/TDAP/TD VACCINES (1 - Tdap) 1966 PNEUMOCOCCAL VACCINE 50+ YEARS (1 of 1 - PCV) 06/24/19 97 ZOSTER VACCINE (1 of 2) 1997 OSTEOPOROSIS SCREENING 2012 RSV VACCINE (60+ or ) (1 - 1-dose 75+ series) 2022 INFLUENZA VACCINE (#1) 2025 Insurance [employer] PPO [facility]
--- OUTSIDE RECORDS SUMMARY | 2025-03-28 14:10 | XMS_ITS | Referral Summary ---
Author Organization [facility] [address] Address [address] [place] [address] Care Team Providers Care Fry Cook Name Role Phone Pierce Cobb MD Primary Care Provider +1 [phone] Allergies Active Allergy Reactions Criticality Noted Date [...] on file Legal Sex Female 6:36 AM CHANGE CONTROL ANALYST Gender Identity Not on file Sexual Orientation Not on file Last Filed Vital Signs Vital Sign Reading Time Taken Comments Blood Pressure 140/90 10/21/2016 9:00 AM CHANGE CONTROL ANALYST Pulse 60 10/21/2016 9:00 AM CHANGE CONTROL ANALYST Temperature - - Respiratory Rate - - Oxygen Saturation - - Inhaled Oxygen Concentration - - Weight 115.7 kg (255 lb) 10/21/2016 9:00 AM CHANGE CONTROL ANALYST Height 170.2 cm (5' 7) 10/21/2016 9:00 AM CHANGE CONTROL ANALYST Body Mass Index 39.94 10/21/2016 9:00 AM CHANGE CONTROL ANALYST Plan of Treatment Not on file Insurance [facility] Care Teams Fry Cook Relationship Specialty Start Date End Date Pierce Cobb MD PCP - General 10/21/16
--- OUTSIDE RECORDS SUMMARY | 2025-03-28 14:10 | XMS_ITS | Clinical Summary ---
Author Organization [facility] Address [address] [place] [address] Care Team Providers Care Mileage Clerk Name Role Phone Pierce Cobb MD Primary Care Provider +1- [phone] Allergies No known active allergies Social History [...] 5:51 PM CDT Height 162.6 cm (5' 4) 05/13/2021 5:51 PM CDT Body Mass Index 42.91 05/13/2021 5:51 PM CDT Plan of Treatment Health Maintenance Due Date Last Done Comments Hepatitis C 1963 DTaP, Tdap and Td Vaccines ( 1 - Tdap) 1966 Pneumococcal Vaccine: 50+ Ye ars (1 of 1 - PCV) 1997 Annual Medicare Wellness Visit 2012 Dexa Scan (General) 2012 Zoster Vaccines (2 of 3) 04/30/2017 03/05/2017 RSV Immunization or 60+ Years (1 - 1-dose 75+ series) 2022 COVID-19 Vaccine ( - 2023-2 5 season) 2024 Meningococcal B Vaccine Aged Out No l onger eligible based on patient's age to complete this topic Meningococcal Vaccine Aged Out No kenisha edi eligible based on patient's age to complete this topic RSV Immunizations Under 20 Months Aged Out No longer eligible based on patient's age to complete this topic Insurance [employer] Care Teams Mileage Clerk Relationship Specialty Start Date End Date Pierce Cobb MD PCP - General FAMILY PRACTICE 05/13/21
--- OUTSIDE RECORDS SUMMARY | 2025-03-28 14:10 | XMS_ITS | Clinical Summary ---
Author Organization [facility] [address] Address [address] [place] [address] Care Team Providers Care Front Attendant Name Role Phone Pierce Cobb MD Primary Care Provider +1 -[phone] Allergies Active Allergy Reactions Criticality Noted Date [...] on file Legal Sex Female 6:36 AM INSPECTOR MATERIAL DISPOSITION Gender Identity Not on file Sexual Orientation Not on file Obstetrics History Last Filed Vital Signs Vital Sign Reading Time Taken Comments Blood Pressure 140/90 10/21/2016 9:00 AM INSPECTOR MATERIAL DISPOSITION Pulse 60 10/21/2016 9:00 AM INSPECTOR MATERIAL DISPOSITION Temperature - - Respiratory Rate - - Oxygen Saturation - - Inhaled Oxygen Concentration - - Weight 115.7 kg (255 lb) 10/21/2016 9:00 AM INSPECTOR MATERIAL DISPOSITION Height 170.2 cm (5' 7) 10/21/2016 9:00 AM INSPECTOR MATERIAL DISPOSITION Body Mass Index 39.94 10/21/2016 9:00 AM INSPECTOR MATERIAL DISPOSITION Plan of Treatment Not on file Insurance [facility] Care Teams Front Attendant Relationship Specialty Start Date End Date Pierce Cobb MD PCP - General 10/21/16
--- OUTSIDE RECORDS SUMMARY | 2025-03-28 14:10 | XMS_ITS | Continuity of Care Document ---
Author Organization [facility] Address [address] [place] [address] [address] [place] [address] Phone Care Team Providers Care Director Product Development Name Role Phone [facility] Unavailable Unavail able Landy Alonzo Unavailable Unavailable Procedures Procedure Date Vision Svcs Frames Purchases Vision [facility] Frames Purchases BF Polycarb Sphcyl [place] To +/-4d .12-2d Anti-reflective Coating Polycarb Lens [...] Diagnoses Date Provider Providers Copied on Encounter [facility], [address], [place], [place], [id number], tel:[phone] [facility] No Information 5-201 0 [facility]. [address] [facility], [address], [place], [place], [id number], [place]. tel:[phone] Referring Provider: Max Burrell OD N[place], [address], [place], [address]. tel:[phone] g Provider: Landy Alonzo, [address] [place], [address]. tel:[phone] [facility], [address], [place], [place], [id number], [place] tel:[phone] [facility] No Information 1-201 0 Burrell OD Max. [address], [place], [address], [place]. tel:[phone] [facility], [address] [place] [address] [address], [place], [place], [address], [place] tel:[phone] [facility] No Information 8-201 0 Satish Martinez. [address] [place], [address], [place]. tel:[phone] Referring Provider: Juan Bay, [address] [place], [address]. tel:[phone] [facility], [address], [place], [place], [id number], [place] tel:[phone] [facility] No Information 1-201 0 Satish Martinez. [address] [place], [address], [place]. tel:[phone] Referring Provider: Juan Bay, [address] [place], [address]. tel:[phone] [facility], [address], [place], [place], [id number], [place] tel:[phone] [place], [place] [address]ate Center No Information Sep-3 0-201 0 Satish Martinez. [address] [place], [address], [place]. tel:[phone] Referring Provider: Juan Bay, [address] [place], [address]. tel:[phone] [facility], [address] [place] [address] [address], [place], [place], [id number], [place] tel:[phone] [place], [place] [address]ate Center No Information 2 3-201 0 Satish Martinez. [address] [place], [place], [facility], [place]. tel:[phone] Referring Provider: Juan Bay, [address] [place], [place], [facility]. tel:[phone] [facility], [address] [place] [address] [address], [place], [place], [id number], [place] tel:[phone] [place] [address] No Information 0 7-201 0 Covington Meaghan. [facility] [facility], [place], [place], [facility], [place]. tel:[phone] Office/outpa tient Visit, [facility], [address] [place] [address] [address], [place], [place], [id number], [place] tel:[phone] [place] [address] No Information 7-201 0 Krishnasamy Lázaro. [facility] [address], [place], [facility], [place]. tel:[phone] Office/outpa tient Visit, [facility], [address] [place] [address] [address], [place], [place], [address], [place] tel:[phone] [place], [place] [address]ate Amma No Information 2 5-200 9 Krishnasamy Lázaro. [address] [facility] [address], [place], [place], [facility], [place]. tel:[phone] Office/outpa tient Visit, [facility], [address], [place], [place], [id number], [place] tel:[phone] [facility] No Information Nov-0 4-200 9 Krishnasamy Lázaro. [address], [place], [address], [place]. tel:[phone] Office/outpa tient Visit, [facility], [address] [place] [address] [address], [place], [place], [id number], [place] tel:[phone] [facility] No Information Oct-2 7-200 9 Krishnasamy Lázaro. [address] [facility] [address], [place], [place], [facility], [place]. tel:[phone] Office/outpa tient Visit, [facility], [address] [place] [address] [address], [place], [place], [id number], [place] tel:[phone] [facility] No Information Oct-2 1-200 9 Krishnasamy Lázaro. [address] [facility] [address], [place], [address], [place]. tel:[phone] Office/outpa tient Visit, [facility], [address] [place] [address] [address], [place], [place], [id number], [place] tel:[phone] [facility] No Information Oct-1 4-200 9 Krishnasamy Lázaro. [address], [place], [address], [place]. tel:[phone] Office/outpa tient Visit, [facility], [address], [place], [place], [id number], [place] tel:[phone] [facility] No Information Mar-0 5-200 9 Krishnasamy Lázaro. [address], [place], [address], . tel:[phone] Referring Provider: Pierce Cobb MD, [address] [place] [address], [address]. tel:[phone] Family History Family Member Type Diagnosis Age At Onset No Information Payers Payer name Insurance type Covered democrat ID Authoriza tisrikanth(s) [employer] Plan CI [id number] Social History Type Description Quantity Date Captured [...]
--- OUTSIDE RECORDS SUMMARY | 2025-03-28 14:10 | XMS_ITS | Encounter Summary ---
Author Organization [facility] Address [address] [place] [address] Care Team Providers Care Trailer Chief Name Role Phone Unavailable Primary Care Provider Unavailabl e Reason for Referral * Laboratory Services (Routine) - Open Specialty Diagnoses / Procedures Referred By Cj herrera Referred To Contact Diagnoses Iron overload Procedures HEMOCHROMATOSIS GENOTYPE Jaspreet Vega MD [address] [address] Phone: tel: fax: Referral ID Status Reason Start Date Expiration Date Visits Re quested Visits Authorized [id number] Open 03/28/2025 04/28/2026 1 1 * Laboratory Services (Routine) - Open Specialty Diagnoses / Procedures Referred By Cj herrera Referred To Contact Diagnoses Erythrocytosis Procedures JAK2 MUTATION Jaspreet Vega MD [address] [place] [address] Phone: tel: fax: Referral ID Status Reason Start Date Expiration Date Visits Re quested Visits Authorized [id number] Open 03/28/2025 04/28/2026 1 1 Reason for Visit * Reason Comments Establish Care Encounter Details Date Type Department Care Team (Late st Contact Info) Description 03/28/2025 1:30 PM CDT Office Visit [facility] Oncology and Hematology - [place] [facility] [address] [address] Jaspreet Vega MD [address] [facility] [address] [place] [address] Erythrocytosis (Primary Dx); Iron overload Social History Tobacco Use Types Packs/Day Years [...] on file Sexual Orientation Not on file documented as of this encounter Last Filed Vital Signs Vital Sign Reading [...] Mass Index 33.2 03/28/2025 1:27 PM CDT documented in this encounter Progress Notes * Jaspreet Vega MD - 03/28/2025 1:58 PM CDT Hematology-oncology consult Note Requesting Physician Pierce Cobb MD Primary Care Physician No primary care provider on file. Problem list There is no problem list on file for this patient. Previous TREATMENT ? Measurable Disease ? Reason for Visit Christina Keane is a 79 y.o. female who was referred for consultation for erythrocytosis and iron overload. History of present illness This is a pleasant 79-year-old slightly obese female with history of hypertension, hypothyroidism and arthritis referred to me for elevated hematocrit and iron levels. She denies any history of lung disease including COPD. She denies any history of sleep apnea. She has lost 50 pound weight in last 6 years duration. She has a history of left lower extremity DVTs status post injury/fall 6months ago and was treated with Eliquis. She denies any history of liver disease. She drink alcoholonce or twice a month. She is not taking any iron supplements. Labs done in November 2024 showed hemoglobin of 15.8 with hematocrit of 48.6. Serum iron level was also elevated at 227. She denies any other complaints. Past Medical History Past Medical History: Diagnosis Date Hx of blood clots Hypertension Hypothyroidism Surgical History Past Surgical History: Procedure Laterality Date HX HERNIA REPAIR 2015 HX HYSTERECTOMY 2018 Medications Current Outpatient Medications Medication Sig Dispense Refill hydroCHLOROthiazide 12.5 mg tablet Take 1 Tablet by mouth daily. clonazePAM (KlonoPIN) 0.5 mg Tablet take 1 tablet by mouth every day at bedtime nebivoloL (BYSTOLIC) 10 mg Tablet DULoxetine (CYMBALTA) 60 mg Capsule, Delayed Release(E.C.) Take 2 Capsules by mouth daily. levothyroxine 137 mcg tablet Take 1 Tablet by mouth daily. hydrALAZINE (APRESOLINE) 25 mg tablet Take 25 mg by mouth 3 times daily. PROGESTERONE MICRONIZED ORAL Take 220 mg by mouth. liothyronine sodium (LIOTHYRONINE ORAL) Take 40 mg by mouth. estradioL (ESTRACE) 0.01% (0.1 mg/g) vaginal cream Insert vaginally daily. No current facility-administered medications for this visit. Allergies Allergies Allergen Reactions Piroxicam Unknown, Other (See Comments) and Swelling Reaction: legs itching, edema, , Reaction: Swelling, Immunizations: There is no immunization history on file for this patient. Family History Family History Problem Relation Name Age of Onset Prostate Cancer Father Diabetes Father Heart Disease Mother Diabetes Mother No Known Problems Brother No Known Problems Sister No Known Problems Child No Known Problems Child No Known Problems Child Social History Social History Tobacco Use Smoking status: Never Smokeless tobacco: Never Substance Use Topics Alcohol use: Yes Comment: occasional Review of Systems Constitutional: Patient did not mention fever; no night sweats; no anorexia; no weight loss; no fatique NEENT: Patient did not mention headache; no change in vision; no change in hearing; no sore throat;no dysphagia Respiratory: Patient did not mention shortness of breath; no pleuritic chest pain; no cough; no hemoptysis Cardiac: Patient did not mention cardiac-like chest pain; no palpitations; no orthopnea; no PND; noDOE Breasts: Patient did not mention tenderness; no masses GI: Patient did not mention abdominal pain; no nausea; no vomiting; no diarrhea; no hematochezia; no melena : Patient did not mention dysuria; no frequency; no hesitancy; no hematuria CIRCULATION ANALYST: Musculosketetal: Patient did not mention bone pain; no arthralgia; no joint swelling; no myalgia; Skin: Patient did not mention pruritis; no rash; no petechiae; no ecchymoses Endocrine: Patient did not mention polydipsia; no polyuria; no unusual weight gain Neuro: Patient did not mention headache; no change in vision; no sensory changes; no muscle weakness; no confusion; no seizures Psych: Patient did not mention anxiety; no depression; Physical Exam Vitals: As per nursing note Constitutional: Well developed, well nourished, no acute distress, non-toxic appearance Teeth and gum. No signs of infection or swelling. Eyes: PERRL, conjunctiva normal HEENT: Atraumatic, external ears normal, nose normal, oropharynx moist, no pharyngeal exudates. no sinus tenderness Neck- normal range of motion, no tenderness, supple Respiratory: No respiratory distress, normal breath sounds, no rales, no wheezing Cardiovascular: Normal rate, normal rhythm, no murmurs, no gallops, no rubs GI: Soft, nondistended, normal bowel sounds, nontender, no splenomegaly, no hepatomegaly, no mass, no rebound, no guarding : No costovertebral angle tenderness Musculoskeletal: No edema, no tenderness, no deformities. Back- no tenderness Integument: Well hydrated, no rash, Digits and nails inspection normal Lymphatic: No lymphadenopathy noted Neurologic: Alert & oriented x 3, CN 2-12 normal, normal motor function, normal sensory function, no focal deficits noted Psychiatric: Speech and behavior appropriate ? labs No results found for this or any previous visit (from the past 24 hours). Labs from November 2024 showed hemoglobin 15.8 hematocrit 48.6 WBC 8.7 platelet 201,000 serum iron is 227 Pathology ? Imaging & Other Studies Performance Status? Assessment / Plan: ? Erythrocytosis. Patient is a pleasant 79-year-old female with history of hypothyroidism and hypertension along with history of left lower extremity DVT status post fall referred to me for elevated hemoglobin and hematocrit. He denies any history of COPD and other lung disease. She denies any history of smoking. She has lost 50 pound weight in last 6 years duration after her . I have also discussed the complications of erythrocytosis including stroke, heart attack and blood clots. I have discussed the differential diagnosis of erythrocytosis with the patient. Thereis the possibility of erythrocytosis with obesity and bone marrow disorder like primary polycythemia. I will order the workup that will include CBC, CMP, erythropoietin level and JAK2 mutation. She will start taking baby aspirin once a day. I we will discuss phlebotomy based on the repeat labs. I have answered all the questions to patient satisfaction. Follow-up in 2 weeks. Iron overload. She denies any history of liver disease and drink alcohol maybe once or twice a month. She is not taking any iron supplements. I will repeat iron studies as well as hemochromatosis genetic testing. Hypertension. Patient is on hydrochlorothiazide. Hypothyroidism. She is on levothyroxine. Thank you very much for allowing me to participate in Christina Keane's evaluation and management.Please feel free to contact if I can be of any further assistance in your patient???s care requiring hematology or oncology evaluation. Sincerely, ? ? Jaspreet Vega M.D. cell TOBACCO COUNSELING She is not a tobacco/nicotine user. Jaspreet Vega MD ,03/28/2025 1:58 PM ? Total time spent 60 minutes, two third of the total time spent counseling patient [id number]. CC:?Pierce Cobb MD documented in this encounter Plan of Treatment Upcoming Encounters Date Type Department Care Team (Late st Contact Info) Description 04/11/2025 4:30 PM CDT Telephone Check Up [facility] Oncology and Hematology - [place] [address] [place] [address] Jaspreet Vega MD [address] [facility] [address] [place] [address] Scheduled Orders Name Type Priority Associated Diagnoses Orde r Schedule CBC WITH DIFFERENTIAL Lab Stat Iron overload Expected: 03/28/2025, Expires: 03/28/2026 COMPREHENSIVE METABOLIC PANEL Lab Stat Iron overload Expected: 03/28/2025, Expires: 03/28/2026 ERYTHROPOIETIN LEVEL Lab Routine Erythrocytosis Expected: 03/28/2025, Expires: 03/28/2026 FERRITIN Lab Routine Iron overload Expected: 03/28/2025, Expires: 03/28/2026 IRON, TIBC, AND PERCENT SATURATION Lab Routine Iron overload Expected: 03/28/2025, Expires: 03/28/2026 JAK2 MUTATION Lab Routine Erythrocytosis Expected: 03/28/2025, Expires: 03/28/2026 HEMOCHROMATOSIS GENOTYPE Lab Routine Iron overload Ordered: 03/28/2025 documented as of this encounter Visit Diagnoses Diagnosis Erythrocytosis- Primary Reserved for inherently not codable concepts WITHOUT codable children Iron overload Other disorders of iron metabolism documented in this encounter
[2025-03-28 14:44] LABS: Hematocrit 48.2 % (37.0-47.0); Hemoglobin 15.8 g/dL (12.0-15.0); Immature Granulocyte Percent A 0.3 % (0-0.5); Lymphocytes Absolute Auto 2.74 K/mm3 (0.9-3.2); Mean Corpuscular HGB Conc 32.8 g/dl (32-36); Mean Corpuscular Hemoglobin 33.8 pg (26-34); Mean Corpuscular Volume 103.0 fl (80-100); Nucleated Red Blood Cells Absolute Auto 0.000 K/mm3 (0.0-0.012); Nucleated Red Blood Cells Perc 0.0 % (0.0-0.2); Platelet Count Result 170 k/mm3 (150-375); Red Blood Count 4.68 M/mm3 (4.2-5.4); White Blood Count 9.6 K/mm3 (4.5-10.0)
[2025-03-28 16:50] LABS: Iron 135 ug/dL (37-170)
[2025-03-28 16:59] LABS: Percent Iron Saturation 41 % (20-50)
[2025-03-28 17:18] LABS: Alanine Aminotransferase 20 U/L (6-35); Albumin Level 4.3 g/dL (3.5-5.1); Alkaline Phosphatase 58 U/L (38-126); Anion Gap 10 mmol/L (4-12); Aspartate Amino Transferase 79 U/L (14-36); Bilirubin,Total 0.7 mg/dL (0.2-1.3); Blood Urea Nitrogen 23 mg/dL (7-17); Calcium 9.9 mg/dL (8.4-10.2); Carbon Dioxide 27 mmol/L (22-30); Chloride 104 mmol/L (98-107); Estimated Glomerular Filt Rate 54; Glucose 113 mg/dL (65-110); Potassium 4.2 mmol/L (3.4-5.0); Sodium 141 mmol/L (137-145); Total Protein 7.9 g/dL (6.3-8.2)
[2025-03-28 17:25] LABS: Ferritin 69.00 ng/mL (11.1-264)
[2025-03-30 16:08] LABS: Erythropoietin (EPO). 9.9 mIU/mL (2.6-18.5)
== END 2025-03-28 14:07 | disposition home or self-care (01) ==
LOC: ANHLAB 14:08
PROVIDERS: PCP Family Medicine; Visit Provider Internal Medicine Hematology & Oncology
DX: D75.1 Secondary polycythemia (principal); E83.19 Other disorders of iron metabolism
CPT/HCPCS: 36415; 80053; 81256; 81270; 82668; 82728; 83540; 83550; 85025

== ENCOUNTER 2025-04-06 10:18 | Outpatient (CLI) | payer MEDICARE, SELFPAY ==
--- OUTSIDE RECORDS SUMMARY | 2025-04-06 10:23 | XMS_ITS | Encounter Summary ---
Author Organization [facility] Address [address] [place] [address] Care Team Providers Care Stock Replenisher Name Role Phone Unavailable Primary Care Provider Unavailabl e Encounter Details Date Type Department Care Team (Late st Contact Info) Description 04/04/2025 External Device Data [facility] ABSTRACTION Provider, Abstract NO ADDRESS ON FILE Social History Tobacco Use Types Packs/Day Years Used Date Smoking Tobacco: Never Smokeless Tobacco: Never Alcohol Use Standard Drinks/Week Comments Yes 0 (1 standard drink = 0.6 oz pur e alcohol) occasional Comments Unknown Sex and Gender Information Value Date Recorded Sex Assigned at Not on file Legal Sex Female 10:34 PM CDT Gender Identity Not on file Sexual Orientation Not on file documented as of this encounter Plan of Treatment Upcoming Encounters Date Type Department Care Team (Late st Contact Info) Description 04/11/2025 4:30 PM CDT Telephone Check Up [facility] Oncology and Hematology - [place] [address] [facility] [address] [place] [address] Jaspreet Vega MD [address] [facility] [address] [place] [address] documented as of this encounter Visit Diagnoses Not on filedocumented in this encounter
--- OUTSIDE RECORDS SUMMARY | 2025-04-06 10:23 | XMS_ITS | Clinical Summary ---
Author Organization [facility] Address [address] [place] [address] Care Team Providers Care Rn Radiation Oncology Name Role Phone Pierce Cobb MD Primary Care Provider [phone]- [phone] Allergies No known active allergies Social History [...] complete this topic Insurance [employer] Care Teams Rn Radiation Oncology Relationship Specialty Start Date End Date Pierce Cobb MD PCP - General FAMILY PRACTICE 05/13/21
--- OUTSIDE RECORDS SUMMARY | 2025-04-06 10:23 | XMS_ITS | Clinical Summary ---
Author Organization [facility] [address] Address [address] [place] [address] Care Team Providers Care Fabrication Supervisor Name Role Phone Pierce Cobb MD Primary Care Provider [phone] [phone] Allergies Active Allergy Reactions Criticality Noted Date [...] on file Legal Sex Female 6:36 AM MEDICAL RESEARCHER Gender Identity Not on file Sexual Orientation Not on file Obstetrics History Last Filed Vital Signs Vital Sign Reading Time Taken Comments Blood Pressure 140/90 10/21/2016 9:00 AM MEDICAL RESEARCHER Pulse 60 10/21/2016 9:00 AM MEDICAL RESEARCHER Temperature - - Respiratory Rate - - Oxygen Saturation - - Inhaled Oxygen Concentration - - Weight 115.7 kg (255 lb) 10/21/2016 9:00 AM MEDICAL RESEARCHER Height 170.2 cm (5' 7) 10/21/2016 9:00 AM MEDICAL RESEARCHER Body Mass Index 39.94 10/21/2016 9:00 AM MEDICAL RESEARCHER Plan of Treatment Not on file Insurance [facility] Care Teams Fabrication Supervisor Relationship Specialty Start Date End Date Pierce Cobb MD PCP - General 10/21/16
--- OUTSIDE RECORDS SUMMARY | 2025-04-06 10:23 | XMS_ITS | Clinical Summary ---
Author Organization [facility] Trevor [facility]ary [address] Address [address] [place] [address] Care Team Providers Care Fairground Operator Name Role Phone Unavailable Primary Care Provider [...] 5 Active nebivoloL (BYSTOLIC) 10 mg Tablet Active DULoxetine (CYMBALTA) 60 mg Capsule, Delayed Release(E.C.) Take 2 Capsules by mouth daily. Active levothyroxine 137 mcg tablet Take 1 [...] Encounters Date Type Department Care Team Description 04/04/2025 External Device Data STL ABSTRACTION Provider, Abstract 04/04/2025 External Device Data ST[facility] ABSTRACTION Provider, Abstract 04/04/2025 External Device Data ST[facility] ABSTRACTION Provider, Abstract 03/29/[address] [facility] Oncology and Hematology - [place] [address] [place] [address] Jaspreet Vega MD 03/29/[address] [facility] Oncology and Hematology - [place] [address] [place] [address] Jaspreet Vega MD 03/28/2025 1:30 PM CDT Office Visit [facility] Oncology and Hematology - [place] [address] [place] [address] Jaspreet Vega MD Erythrocytosis (Primary [...] 04/11/2025 4:30 PM CDT Telephone Check Up [facility] Oncology and Hematology - [place] [address] [place] [address] Jaspreet Vega MD [address] [facility] [address] [place] [address] Health Maintenance Due Date Last Done Comments DTAP/TDAP/TD VACCINES (1 - Tdap) 1966 PNEUMOCOCCAL VACCINE 50+ YEARS (1 of 1 - PCV) 06/24/19 97 ZOSTER VACCINE (1 of 2) 1997 OSTEOPOROSIS SCREENING 2012 RSV VACCINE (60+ or ) (1 - 1-dose 75+ series) 2022 INFLUENZA VACCINE (#1) 2025 Procedures Procedure Name Priority Date/Time Associated Diagnosis Comments COMPREHENSIVE METABOLIC PANEL Routine 03/28/2025 8:21 AM CDT from Last 3 Months Results * COMPREHENSIVE METABOLIC PANEL (03/28/2025 8:21 AM CDT) Blood Jaspreet Vega MD CHEMISTRY ORDERABLES Final Resu lt from Last 3 Months Insurance [employer] PPO [facility]
--- OUTSIDE RECORDS SUMMARY | 2025-04-06 10:23 | XMS_ITS | Referral Summary ---
Author Organization [facility] [address] Address [address] [place] [address] Care Team Providers Care Tire Repair Mechanic Name Role Phone Pierce Cobb MD Primary Care Provider +1 [phone] Allergies Active Allergy Reactions Criticality Noted Date [...] on file Legal Sex Female 6:36 AM DINING ROOM HOSTESS Gender Identity Not on file Sexual Orientation Not on file Last Filed Vital Signs Vital Sign Reading Time Taken Comments Blood Pressure 140/90 10/21/2016 9:00 AM DINING ROOM HOSTESS Pulse 60 10/21/2016 9:00 AM DINING ROOM HOSTESS Temperature - - Respiratory Rate - - Oxygen Saturation - - Inhaled Oxygen Concentration - - Weight 115.7 kg (255 lb) 10/21/2016 9:00 AM DINING ROOM HOSTESS Height 170.2 cm (5' 7) 10/21/2016 9:00 AM DINING ROOM HOSTESS Body Mass Index 39.94 10/21/2016 9:00 AM DINING ROOM HOSTESS Plan of Treatment Not on file Insurance [facility] Care Teams Tire Repair Mechanic Relationship Specialty Start Date End Date Pierce Cobb MD PCP - General 10/21/16
[2025-04-06 18:51] LABS: Hematocrit 48.1 % (37.0-47.0); Hemoglobin 15.4 g/dL (12.0-15.0); Immature Granulocyte Percent A 0.4 % (0-0.5); Lymphocytes Absolute Auto 1.95 K/mm3 (0.9-3.2); Mean Corpuscular HGB Conc 32.0 g/dl (32-36); Mean Corpuscular Hemoglobin 33.2 pg (26-34); Mean Corpuscular Volume 103.7 fl (80-100); Nucleated Red Blood Cells Absolute Auto 0.000 K/mm3 (0.0-0.012); Nucleated Red Blood Cells Perc 0.0 % (0.0-0.2); Platelet Count Result 132 k/mm3 (150-375); Red Blood Count 4.64 M/mm3 (4.2-5.4); White Blood Count 8.2 K/mm3 (4.5-10.0)
[2025-04-06 19:00] LABS: Alanine Aminotransferase 17 U/L (6-35); Albumin Level 4.0 g/dL (3.5-5.1); Alkaline Phosphatase 52 U/L (38-126); Anion Gap 8 mmol/L (4-12); Aspartate Amino Transferase 33 U/L (14-36); Bilirubin,Total 0.7 mg/dL (0.2-1.3); Blood Urea Nitrogen 18 mg/dL (7-17); Calcium 9.4 mg/dL (8.4-10.2); Carbon Dioxide 26 mmol/L (22-30); Chloride 107 mmol/L (98-107); Cholesterol 133 mg/dL (0-200); Estimated Glomerular Filt Rate > 60; Glucose 123 mg/dL (65-110); HDL Direct 42 mg/dL; Potassium 3.9 mmol/L (3.4-5.0); Sodium 141 mmol/L (137-145); Total Protein 7.3 g/dL (6.3-8.2); Triglycerides 116 mg/dL (<150)
[2025-04-06 21:04] LABS: Hemoglobin A1C 5.8 % (<5.7)
[2025-04-06 21:52] LABS: Thyroid Stimulating Hormone Reflex 0.154 uIU/mL (0.465-4.68)
[2025-04-07 06:20] LABS: Free T4 Free Thyroxine Reflex 1.56 ng/dL (0.78-2.19)
[2025-04-07 11:13] LABS: Total Triiodothyronine (T3) 1.04 NG/ML (0.82-1.58)
== END 2025-04-06 10:19 | disposition home or self-care (01) ==
LOC: ANHGOSHLAB 10:19
PROVIDERS: PCP Family Medicine; Visit Provider Family Medicine
DX: E78.5 Hyperlipidemia, unspecified (principal); R73.03 Prediabetes; E03.9 Hypothyroidism, unspecified; D75.1 Secondary polycythemia
CPT/HCPCS: 36415; 80053; 80061; 83036; 84439; 84443; 84480; 85025

== ENCOUNTER 2025-08-30 10:22 | Outpatient (CLI) | payer MEDICARE, SELFPAY ==
[2025-08-30 10:40] LABS: Hematocrit 45.9 % (37.0-47.0); Hemoglobin 14.9 g/dL (12.0-15.0); Immature Granulocyte Percent A 0.4 % (0-0.5); Lymphocytes Absolute Auto 1.89 K/mm3 (0.9-3.2); Mean Corpuscular HGB Conc 32.5 g/dl (32-36); Mean Corpuscular Hemoglobin 33.5 pg (26-34); Mean Corpuscular Volume 103.1 fl (80-100); Nucleated Red Blood Cells Absolute Auto 0.000 K/mm3 (0.0-0.012); Nucleated Red Blood Cells Perc 0.0 % (0.0-0.2); Platelet Count Result 155 k/mm3 (150-375); Red Blood Count 4.45 M/mm3 (4.2-5.4); White Blood Count 7.5 K/mm3 (4.5-10.0)
--- OUTSIDE RECORDS SUMMARY | 2025-08-30 11:43 | XMS_ITS | Clinical Summary ---
Author Organization [facility] Address [address] [place] [address] Care Team Providers Care Smutter Name Role Phone Pierce Cobb MD Primary Care Provider +1- [phone] Allergies No known active allergies Social History [...] - 1-dose 75+ series) 2022 COVID-19 Vaccine (1 - 2024-2 6 season) 2025 Influenza Adult (#1) 2025 07/06/2019 Hepatitis A Vaccines Aged Out No long er eligible based on patient's age to complete this topic Meningococcal B Vaccine Aged Out No l onger eligible based on patient's age to complete this topic Meningococcal Vaccine Aged Out No kenisha edi eligible based on patient's age to complete this topic RSV Immunizations Under 20 Months Aged Out No longer eligible based on patient's age to complete this topic Insurance [employer] MEDICARE Care Teams Smutter Relationship Specialty Start Date End Date Pierce Cobb MD PCP - General FAMILY PRACTICE 05/13/21
--- OUTSIDE RECORDS SUMMARY | 2025-08-30 11:43 | XMS_ITS | Clinical Summary ---
Author Organization [facility] [address] Address [address] [place] [address] Care Team Providers Care Storage Management Architect Name Role Phone Pierce Cobb MD Primary Care Provider [phone] -[phone] Allergies Active Allergy Reactions Criticality Noted Date [...] on file Legal Sex Female 6:36 AM CUTTING SUPERVISOR Gender Identity Not on file Sexual Orientation Not on file Last Filed Vital Signs Vital Sign Reading Time Taken Comments Blood Pressure 140/90 10/21/2016 9:00 AM CUTTING SUPERVISOR Pulse 60 10/21/2016 9:00 AM CUTTING SUPERVISOR Temperature - - Respiratory Rate - - Oxygen Saturation - - Inhaled Oxygen Concentration - - Weight 115.7 kg (255 lb) 10/21/2016 9:00 AM CUTTING SUPERVISOR Height 170.2 cm (5' 7) 10/21/2016 9:00 AM CUTTING SUPERVISOR Body Mass Index 39.94 10/21/2016 9:00 AM CUTTING SUPERVISOR Plan of Treatment Not on file Insurance [facility] Care Teams Storage Management Architect Relationship Specialty Start Date End Date Pierce Cobb MD PCP - General 10/21/16
--- OUTSIDE RECORDS SUMMARY | 2025-08-30 11:43 | XMS_ITS | Clinical Summary ---
Author Organization [facility] Trevor cleary [facility] Address [address] [place] [address] Care Team Providers Care Foreign Languages Professor Name Role Phone Unavailable Primary Care Provider [...] 1 Tablet by mouth daily. 5 Active hydrALAZINE (APRESOLINE) 25 mg tablet Take 25 mg by mouth 3 times daily. Active PROGESTERONE MICRONIZED ORAL Take 220 mg by mouth. Active liothyronine sodium (LIOTHYRONINE ORAL) Take 40 mg by mouth. Active estradioL (ESTRACE) 0.01% (0.1 mg/g) vaginal cream Insert vaginally daily. Active Active Problems No known active problems Encounters Date Type Department Care Team Description 07/18/2025 External Device Data STL ABSTRACTION Provider, Abstract from Last 3 Months Family History Medical [...] Care Team (Late st Contact Info) Description 09/04/2025 11:00 AM UNDERWRITING ACCOUNT REPRESENTATIVE Office Visit [facility] Oncology and Hematology [facility] [address] [place] [address] [address] [place] [address] Jaspreet Vega MD [address] [facility] [address] [place] [address] Health Maintenance Due Date Last Done Comments DTAP/TDAP/TD VACCINES (1 - Tdap) 1966 PNEUMOCOCCAL VACCINE 50+ YEARS (1 of 1 - PCV) 06/24/19 97 ZOSTER VACCINE (1 of 2) 1997 OSTEOPOROSIS SCREENING 2012 RSV VACCINE (60+ or ) (1 - 1-dose 75+ series) 2022 Medicare Ad[place] Prev entative Visit/Annual Wellness Visit 09/28/2024 INFLUENZA VACCINE (#1) 2025 Insurance [employer] PPO [facility]
[2025-08-30 12:15] LABS: Iron 134 ug/dL (37-170)
[2025-08-30 12:31] LABS: Percent Iron Saturation 49 % (20-50)
[2025-08-30 12:57] LABS: Ferritin 65.90 ng/mL (11.1-264)
== END 2025-08-30 10:23 | disposition home or self-care (01) ==
LOC: ANHLAB 10:23
PROVIDERS: PCP Family Medicine; Visit Provider Internal Medicine Hematology & Oncology
DX: E83.19 Other disorders of iron metabolism (principal)
CPT/HCPCS: 36415; 82728; 83540; 83550; 85025